=== PATIENT | male | born 1970 | race Caucasian/White ===

== ENCOUNTER 2016-12-16 08:11 | Emergency (ER) | payer OTHER ==
[~2016-12-16] VITALS: Ht 177.8 cm; Wt 99.5 kg
[~2016-12-16 08:11] MED LIST: ABIL5TAB6 PO; ASPI-110 PO; CYMB60CA PO; FISH1000; GABA100C4 PO; HYDR-3535 PO; LORA-392 PO; MULTTAB6; PERC10TA27 PO; REST30CA PO; ROBA500T PO
[2016-12-16 08:16] VITALS: BP 131/71; PULSE 75; RESP 16; TEMP 98.7; O2SAT 96
[2016-12-16] MEDS ORDERED: RESP: LIDOCAINE HCL 4% PF 5 ML NEB NEB ONE (08:30)
[2016-12-16] MEDS ORDERED: RESP: ALBUTEROL 2.5 MG/IPRATROPIUM 0.5 MG NEB (SCH) NEB ONE (08:30)
[2016-12-16] MEDS ORDERED: ZITHTAB PO (08:32)
[2016-12-16] MEDS ORDERED: PRED-503 PO (08:32)
[2016-12-16] MEDS ORDERED: VENTAER INH (08:32)
--- NOTE | 2016-12-16 08:33 | PD ---
HPI Chief Complaint: Cold / Flu Symptoms Time Seen by Provider: 08:21 Travel History International Travel<30 days: No Contact w/Intl Traveler<30days: No Traveled to known affect area: No History of Present Illness HPI The patient is a 46-year-old male who presents to the emergency department for one week history of cough. The cough is mostly nonproductive, however, in the mornings occasionally is productive producing white-yellow sputum. He does complain of mild congestion, intermittent chills and sweats, as well as some right mid back pain secondary to coughing. The back pain is sharp, worse with coughing, and alleviated at rest. The patient denies any history of tobacco use. He denies any recent international travel last 3 months. He does have a history of bronchitis, denies any known history of pneumonia. The patient recently changed insurance to [facility], does not have a primary physician. Symptoms have been ongoing for 1 week, there are no alleviating or exacerbating factors. PFSH Past Medical History Arthritis: No Asthma: No Autoimmune Disease: No Anxiety: Yes (HISTORY OF ANXIETY) Depression: No Heart Rhythm Problems: No Cancer: No Cardiovascular Problems: Yes Chemotherapy: No Chest Pain: No COPD: No Cerebrovascular Accident: No Diabetes: No Diminished Hearing: No Endocrine: No Gastrointestinal Disorders: Yes (ACID REFLUX) GERD: Yes Genitourinary: No Headaches: Yes Hypertension: No Immune Disorder: No Implanted Vascular Access Dvce: No Kidney Stones: No Musculoskeletal: Yes Neurologic: Yes (HEADACHES, DIZZINESS, MIGRAINES, VERTIGO) Psychiatric: Yes Reproductive: No Respiratory: No Integumentary: Yes (psoriasis) Migraines: Yes Renal Failure: No Seizures: No Sickle Cell Disease: No Thyroid Disease: No Ulcer: No Past Surgical History Abdominal Surgery: Yes (Small ventral hernia repair) AICD: No Arteriovenous Shunt: No Body Medical Devices: PINS/RODS LEFT LEG Cardiac Surgery: Yes (STENTS IN HEART) Ear Surgery: No Endocrine Surgery: No Eye Surgery: No Gynecologic Surgery: No Insulin Pump: No Joint Replacement: Yes (RT KNEE) Neurologic Surgery: No Oral Surgery: No Pacemaker: No Thoracic Surgery: Yes (STENTS IN HEART FROM TORN AORTA) Other Surgery: Yes Social History Alcohol Use: Yes (soc) Tobacco Use: No Substance Use: No Allergies-Medications (Allergen,Severity, Reaction): Coded Allergies: No Known Allergies (Unverified , 12/16/16) Reported Meds & Prescriptions Reported Meds & Active Scripts Active Robaxin (Methocarbamol) 500 Mg Tab 500 Mg PO TID Reported Restoril (Temazepam) 30 Mg Cap 30 Mg PO HS PRN Gabapentin 100 Mg Cap 100 Mg PO BID Fish Oil (Garland-3 Fatty Acids) 1,000 Mg Cap Ativan (Lorazepam) 0.5 Mg Tab 0.5 Mg PO TID PRN Aspirin 81 (Aspirin) 81 Mg Tabdr 81 Mg PO DAILY Cymbalta DR (Duloxetine HCl) 60 Mg Capdr 60 Mg PO DAILY Percocet (Oxycodone-Acetaminophen) 10-325 mg Tab 1 Tab PO Q4H PRN Lortab (Hydrocodone-Acetaminophen) 10-325 Mg Tab 1 Tab PO TID PRN 30 Days Review of Systems Except as stated in HPI: all other systems reviewed are Neg General / Constitutional: Positive: Fever (subjective), Chills HENT: Positive: Congestion Cardiovascular: No: Chest Pain or Discomfort Respiratory: Positive: Cough, No: Shortness of Breath Gastrointestinal: No: Nausea, Vomiting, Abdominal Pain Musculoskeletal: No: Myalgias Physical Exam Narrative GENERAL: Awake, alert, very pleasant 46-year-old male who appears his stated age and is in no acute respiratory distress. SKIN: Focused skin assessment warm/dry. HEAD: Atraumatic. Normocephalic. EYES: Pupils equal and round. No scleral icterus. No injection or drainage. ENT: No nasal bleeding or discharge. Mucous membranes pink and moist. Posterior oropharynx reveals cobblestoning but no exudate. TMs are translucent and EACs are clear. NECK: Trachea midline. No JVD. CARDIOVASCULAR: Regular rate and rhythm. No murmur appreciated. RESPIRATORY: No accessory muscle use. Few scattered late expiratory wheezes. GASTROINTESTINAL: Abdomen soft, non-tender, nondistended. No rebound tenderness. Back: No CVA tenderness. MUSCULOSKELETAL: No obvious deformities. No clubbing. No cyanosis. No edema. NEUROLOGICAL: Awake and alert. No obvious cranial nerve deficits. Motor grossly within normal limits. Normal speech. PSYCHIATRIC: Appropriate mood and affect; insight and judgment normal. Data Data Last Documented VS Vital Signs Date Time Temp Pulse Resp B/P (MAP) Pulse Ox O2 Delivery O2 Flow Rate FiO2 12/16/16 08:16 98.7 75 16 131/71 (91) 96 Orders Orders Albuterol-Ipratropium Neb (Duoneb Neb) (12/16/16 08:30) Lidocaine Pf 4% Neb (Lidocaine Pf 4% Neb (12/16/16 08:30) MDM Medical Decision Making Medical Screen Exam Complete: Yes Emergency Medical Condition: Yes Medical Record Reviewed: Yes Differential Diagnosis Differential diagnosis includes bronchitis, pneumonia, atypical walking pneumonia, URI, viral syndrome, influenza, postnasal drip, GERD. Narrative Course The patient's history and physical are consistent with bronchitis. The patient was administered one DuoNeb with respiratory lidocaine. The patient be discharged home on prednisone, Zithromax, and albuterol inhaler. He is advised to follow-up with his primary physician at [facility]. Return if symptoms worsen or progress. Diagnosis Primary Impression: Bronchitis Patient Instructions: General Instructions Additional Instructions: Medications as directed. Follow-up with her primary physician. Return if symptoms worsen or progress. Med/Other Pt SpecificInfo: Prescription(s) given Scripts Albuterol 18 GM Inh (Ventolin Hfa 18 GM Inh) 90 Mcg/Act Aer 2 PUFF INH Q4H Y for SHORTNESS OF BREATH, #1 INHALER 0 Refills Prov: Heber Murillo MD 12/16/16 Azithromycin (Zithromax Z-Marlo) 250 Mg Dspk 250 MG PO DIRECTED for Infection, #1 DSPK 0 Refills 500 MG (2 tabs) day 1, then 1 tab days 2-5. Prov: Heber Murillo MD 12/16/16 Prednisone (Deltasone) 20 Mg Tab 40 MG PO DAILY for 5 Days, #10 TAB 0 Refills Prov: Heber Murillo MD 12/16/16 Disposition: DISCHARGE HOME Condition: Stable Heber Murillo MD Dec 16, 2016 08:33
[2016-12-22] MEDS ORDERED: LEVA500T20 PO (19:53)
== END 2016-12-16 09:24 | disposition home or self-care (01) ==
LOC: PHED 08:11
DX: J40 Bronchitis, not specified as acute or chronic (principal); M54.9 Dorsalgia, unspecified; F41.9 Anxiety disorder, unspecified; K21.9 Gastro-esophageal reflux disease without esophagitis; Z79.82 Long term (current) use of aspirin; Z79.899 Other long term (current) drug therapy
CPT/HCPCS: 94664; 99284

== ENCOUNTER 2016-12-22 18:45 | Emergency (ER) | payer OTHER ==
[~2016-12-22] VITALS: Ht 177.8 cm; Wt 101.5 kg
[~2016-12-22 18:45] MED LIST changes: -ABIL5TAB6 PO; -ASPI-110 PO; +ASPI1TAB57 PO; -MULTTAB6; +PRED-503 PO; +VENTAER INH; +ZITHTAB PO
[2016-12-22 18:51] VITALS: BP 135/73; PULSE 75; RESP 16; TEMP 97.7; O2SAT 96
--- NOTE | 2016-12-22 19:46 | PD ---
HPI Chief Complaint: Cold / Flu Symptoms Time Seen by Provider: 19:23 Travel History International Travel<30 days: No Contact w/Intl Traveler<30days: No Traveled to known affect area: No History of Present Illness HPI 46-year-old male here for evaluation of possible pneumonia. Patient reports he was recently treated for bronchitis and stopped his antibiotics on 12/20/16. He reports his symptoms originally improved with the antibiotics but then returned shortly after stopping. He is reporting a productive cough with colored sputum. He denies chest pain or shortness of breath. He does report posterior lower rib pain occasionally with coughing. He denies fever or chills. Symptom severity is moderate. PFSH Past Medical History Arthritis: No Asthma: No Autoimmune Disease: No Anxiety: Yes (HISTORY OF ANXIETY) Depression: No Heart Rhythm Problems: No Cancer: No Cardiac Catheterization: Yes (stent placement) Cardiovascular Problems: Yes Chemotherapy: No Chest Pain: No COPD: No Cerebrovascular Accident: No Diabetes: No Diminished Hearing: No Endocrine: No Gastrointestinal Disorders: Yes (ACID REFLUX) GERD: Yes Genitourinary: No Headaches: Yes Hypertension: No Immune Disorder: No Implanted Vascular Access Dvce: No Kidney Stones: No Musculoskeletal: Yes Neurologic: Yes (HEADACHES, DIZZINESS, MIGRAINES, VERTIGO) Psychiatric: Yes Reproductive: No Respiratory: No Integumentary: Yes (psoriasis) Migraines: Yes Renal Failure: No Seizures: No Sickle Cell Disease: No Thyroid Disease: No Ulcer: No ?: Not Past Surgical History Abdominal Surgery: Yes (Small ventral hernia repair) AICD: No Arteriovenous Shunt: No Body Medical Devices: PINS/RODS LEFT LEG Cardiac Surgery: Yes (STENTS IN HEART) Ear Surgery: No Endocrine Surgery: No Eye Surgery: No Gynecologic Surgery: No Insulin Pump: No Joint Replacement: Yes (RT KNEE) Neurologic Surgery: No Oral Surgery: No Pacemaker: No Thoracic Surgery: Yes (STENTS IN HEART FROM TORN AORTA) Other Surgery: Yes Social History Alcohol Use: Yes (soc) Tobacco Use: No Substance Use: No Allergies-Medications (Allergen,Severity, Reaction): Coded Allergies: No Known Allergies (Unverified , 12/16/16) Reported Meds & Prescriptions Reported Meds & Active Scripts Active Tessalon Perles (Benzonatate) 100 Mg Cap 100 Mg PO TID PRN 5 Days Prednisone 20 Mg Tab 40 Mg PO DAILY Take 40 mg (2 tablets) daily for 5 days Levaquin (Levofloxacin) 500 Mg Tablet 500 Mg PO DAILY 7 Days Ventolin Hfa 18 GM Inh (Albuterol Sulfate) 90 Mcg/Act Aer 2 Puff INH Q4H PRN Reported Gabapentin 100 Mg Cap 100 Mg PO BID Fish Oil (Debary-3 Fatty Acids) 1,000 Mg Cap Lortab (Hydrocodone-Acetaminophen) 10-325 Mg Tab 1 Tab PO TID PRN 30 Days Review of Systems Except as stated in HPI: all other systems reviewed are Neg General / Constitutional: Positive: Chills, No: Fever Eyes: No: Visual changes Cardiovascular: No: Chest Pain or Discomfort Respiratory: Positive: Cough Physical Exam Narrative GENERAL: Well-nourished, well-developed patient. Nontoxic appearing SKIN: Focused skin assessment warm/dry. HEAD: Normocephalic. EYES: No scleral icterus. No injection or drainage. NECK: Supple, trachea midline. No JVD or lymphadenopathy. CARDIOVASCULAR: Regular rate and rhythm without murmurs, gallops, or rubs. RESPIRATORY: Breath sounds equal bilaterally. No accessory muscle use. Although expiratory wheezes GASTROINTESTINAL: Abdomen soft, non-tender, nondistended. Data Data Last Documented VS Vital Signs Date Time Temp Pulse Resp B/P (MAP) Pulse Ox O2 Delivery O2 Flow Rate FiO2 12/22/16 18:51 97.7 75 16 135/73 (93) 96 MDM Medical Decision Making Medical Screen Exam Complete: Yes Emergency Medical Condition: Yes Differential Diagnosis Bronchitis, pneumonia, influenza Narrative Course 46-year-old male here for evaluation of productive cough and colored sputum 2 days. Patient was recently treated with azithromycin for bronchitis. He reports symptom improvement with antibiotics. He reports symptoms worsened after antibiotics stopped. On exam patient has mild expiratory wheezes and a harsh sounding cough. His vital signs are stable. He is nontoxic appearing. He will treated with Levaquin for bronchitis. Struck to follow-up with his PCP Diagnosis Primary Impression: Bronchitis Referrals: Primary Care Physician Additional Instructions: Take the antibiotics as prescribed. Take the steroids as prescribed. Follow-up with her primary doctor. Rest and drink plenty of fluids Scripts Benzonatate (Tessalon Perles) 100 Mg Cap 100 MG PO TID Y for COUGH for 5 Days, CAP 0 Refills Prov: Kayley Quintanilla [employer] 12/22/16 Prednisone (Prednisone) 20 Mg Tab 40 MG PO DAILY, #10 TAB 0 Refills Take 40 mg (2 tablets) daily for 5 days Prov: Kayley Quintanilla 12/22/16 Levofloxacin (Levaquin) 500 Mg Tablet 500 MG PO DAILY for Infection for 7 Days, #7 TAB 0 Refills Prov: Kayley Quintanilla 12/22/16 Disposition: 01 DISCHARGE HOME Condition: Stable Kayley Quintanilla Dec 22, 2016 19:46
[2016-12-22] MEDS ORDERED: PRED20 PO (19:53)
[2016-12-22] MEDS ORDERED: LEVA500T33 PO (19:53)
[2016-12-22] MEDS ORDERED: BENZ100 PO (19:53)
== END 2016-12-22 20:17 | disposition home or self-care (01) ==
LOC: PHEFT 18:45
DX: J40 Bronchitis, not specified as acute or chronic (principal)
CPT/HCPCS: 99284